=== PATIENT | female | born 1985 | race Two or more races ===

== ENCOUNTER 2017-03-20 09:45 | Observation (INO) | payer SELFPAY ==
[2017-03-20] MEDS ORDERED: PREN-96 PO (10:49)
[2017-03-20 11:02] LABS: Basophils # (auto) 0 uL; Basophils % (auto) 0.3 % (0.0-2.0); Eosinophils # (auto) 0.1 uL; Eosinophils % (auto) 1.4 % (0.0-7.0); Hematocrit 35.2 % (36.0-46.0); Lymphocytes # (auto) 1.5 uL; Lymphocytes % (auto) 22.4 % (10.0-50.0); Mean Corpuscular Hemoglobin 31.4 pg (28.0-32.0); Mean Corpuscular Volume 92.5 fL (80.0-100.0); Mean Platelet Volume 11.2 fL (6.9-10.8); Monocytes # (auto) 0.4 uL; Monocytes % (auto) 6.2 % (0.0-12.0); Neutrophils # (auto) 4.6 uL; Neutrophils % (auto) 69.7 % (37.0-80.0); Nucleated Red Blood Cells % 0.1 %; Platelet Count (auto) 109 10^3/uL (140-450); Red Cell Distribution Width 13.6 % (11.8-14.3); White Blood Cell 6.7 10^3/uL (4.4-10.8)
[2017-03-20 11:21] LABS: Albumin 2.7 g/dL (3.4-5.0); BUN/Creatinine Ratio 14.3; Bilirubin, Total 0.3 mg/dL (0.2-1.0); Calcium 8.4 mg/dL (8.5-10.1); Potassium 3.7 mmol/L (3.5-5.1); Total Protein 6.6 g/dL (6.4-8.2)
== END 2017-03-20 12:00 | disposition home or self-care (01) | DRG 781 ==
LOC: LDRP 09:45
PROVIDERS: ADMIT Specialist; ATTEND Specialist
DX: O26.893 Other specified pregnancy related conditions, third trimester (principal); Z3A.38 38 weeks gestation of pregnancy
CPT/HCPCS: 36415; 59025; 80053; 81002; 85025; G0378